=== PATIENT | female | born 1990 | race African-American/Black ===

== ENCOUNTER 2023-12-10 13:21 | Emergency (ER) | payer OTHER, SELFPAY ==
[2023-12-10 13:22] VITALS: BP 131/80
[2023-12-10 13:57] LABS: Urine Albumin Negative (Neg - Trace); Urine Bilirubin Negative (Negative); Urine Character Clear (Clear); Urine Color Yellow; Urine Glucose 2+ (Negative); Urine Ketone Trace (Negative); Urine Leukocyte Negative (Negative); Urine Nitrite Negative (Negative); Urine Occult Blood Negative (Negative); Urine Urobilinogen Negative (Neg - 1+)
[2023-12-10 13:59] LABS: % Basophils 0.4 % (0-2); % Immature Granulocytes 0.3 % (0-0.5); % Lymphocytes 23.5 % (20.5-51.1); % Monocytes 7.5 % (1.7-9.3); % Neutrophils 59.3 % (42.2-75.2); Absolute Eosinophils 0.7 10^3/uL (0-0.7); Absolute Lymphocytes 1.9 10^3/uL (1.2-3.4); Absolute Monocytes 0.6 10^3/uL (0.1-0.6); Absolute Neutrophils 4.7 10^3/uL (1.4-6.5); Hemoglobin 13.7 g/dL (12.0-16.0); Mean Corp Hgb Conc. 34.3 g/dL (33.0-37.0); Mean Corpuscular Hgb 29.2 pg (27.0-31.0); Mean Corpuscular Volume 85.3 fL (81.0-99.0); Mean Platelet Volume 9.9 fL (7.4-10.4); Nucleated Red Blood Cells % 0 %; Platelet Count 432 10^3/uL (130-400); Red Blood Cell Count 4.69 10^6/uL (4.20-5.40); Red Cell Dist. Width 13.2 % (11.5-14.5); White Blood Cell Count 7.9 10^3/uL (4.8-10.8)
--- NOTE | 2023-12-10 14:01 | ED.GENMED ---
History of Present Illness
<Rosy Rivera PA-C - Last Filed: 12/10/23 18:18>
General
Chief Complaint: Flank Pain
Source: patient
Exam Limitations: none
Time Seen by Provider: 12/10/23 13:57
Nursing documentation reviewed up to this point in time: agreed with
History of Present Illness
History of Present Illness:
This is a 33 y/o female with a pmh of asthma, presents to the emergency department today with concerns of right sided upper back pain that wraps around to the front for the past 2 days. She has had associated nausea and vomiting with this. Patient
reports that the pain comes and goes. She does not recall what she was doing when the pain first started. She denies any traumatic injury to the back or chest wall. She denies any diarrhea or constipation. Patient denies any pruritus. Patient
denies any chest pain or shortness of breath. Patient denies any swelling in her lower extremities. Patient also notes that she has had intermittent pelvic cramping which is increased the past few days. Patient estimates to be 6 weeks ,
her last menstrual period was in the middle of October. 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
Review of Systems
<Rosy Rivera PA-C - Last Filed: 12/10/23 18:18>
Review of Systems
All Other Systems: ROS reviewed and negative except as documented in HPI and ROS
Phy Exam
<Rosy Rivera PA-C - Last Filed: 12/10/23 18:18>
Physical Exam
Physical Exam:
General: Patient is well appearing and in no acute distress; non-toxic
Skin: Warm and dry, no rashes or lesions
Head: Normocephalic, atraumatic
Eyes: Sclera non-icteric. EOMs intact. PERRLA.
Cardiac: Regular rate and rhythm, no murmurs
Peripheral Vascular: No lower extremity swelling or edema
Pulm: Normal respiratory effort, no wheezes, rales, rhonchi
Abdomen: Abdominal tenderness noted in the right upper quadrant, no CVA tenderness, no guarding, no palpable masses, no pelvic tenderness palpation
Musculoskeletal: No midline spinal tenderness noted, mild tenderness palpation of the right
Neuro: CN II-XII intact, no focal neurologic deficits.
Psychiatric: Appropriate mood and affect.
Course
<Rosy Rivera PA-C - Last Filed: 12/10/23 18:18>
Orders/Labs/Results
Orders:
Orders
12/10/23 13:35
Complete Blood Count/With Diff Urgent
Comprehensive Metabolic Panel Urgent
HCG,SERUM [Beta HCG Quantitative] Urgent
Is this a screen?: No
Lipase Urgent
Urinalysis Reflex To Culture Urgent
Date Specimen was Collected: 12/10/23
Time Specimen was Collected: 13:27
12/10/23 14:17
US Abdomen Complete/Upper Urgent
Reason For Exam: right upper quadrant pain
US 1st Trimester Urgent
Reason For Exam: pelvic cramping
12/10/23 14:19
Acetaminophen [Tylenol] 500 mg PO NOW STA
12/10/23 14:21
Add On- LAB Urgent
Tests Added?: lipase
12/10/23 14:46
Lactated Ringers [Lr] 1,000 ml IV BOLUS
Abnormal Lab Results
12/10/23
13:35
Plt Count 432 H 10^3/uL
(130-400)
Eosinophils % 9.0 H %
(0-6)
Creatinine 0.5 L mg/dL
(0.6-1.0)
Total Bilirubin 1.4 H mg/dl
(0.2-1.3)
Urine Ketones Trace A
(Negative)
Urine Glucose 2+ A
(Negative)
12/10/23 13:35
12/10/23 13:35
Vital Signs
Initial and Last Documented VS:
Initial Vital Signs
Temp Pulse Resp BP Pulse Ox
98.6 F 106 16 131/80 100
12/10/23 13:22 12/10/23 13:22 12/10/23 13:22 12/10/23 13:22 12/10/23 13:22
Last Documented Vital Signs
Temp Pulse Resp BP Pulse Ox
98.6 F 106 16 131/80 100
12/10/23 13:22 12/10/23 13:22 12/10/23 13:22 12/10/23 13:22 12/10/23 13:22
<Bogdan Nash, DO - Last Filed: 12/10/23 16:18>
Orders/Labs/Results
Orders:
Orders
12/10/23 13:35
Complete Blood Count/With Diff Urgent
Comprehensive Metabolic Panel Urgent
HCG,SERUM [Beta HCG Quantitative] Urgent
Is this a screen?: No
Lipase Urgent
Urinalysis Reflex To Culture Urgent
Date Specimen was Collected: 12/10/23
Time Specimen was Collected: 13:27
12/10/23 14:17
US Abdomen Complete/Upper Urgent
Reason For Exam: right upper quadrant pain
US 1st Trimester Urgent
Reason For Exam: pelvic cramping
12/10/23 14:19
Acetaminophen [Tylenol] 500 mg PO NOW STA
12/10/23 14:21
Add On- LAB Urgent
Tests Added?: lipase
12/10/23 14:46
Lactated Ringers [Lr] 1,000 ml IV BOLUS
Abnormal Lab Results
12/10/23
13:35
Plt Count 432 H 10^3/uL
(130-400)
Eosinophils % 9.0 H %
(0-6)
Creatinine 0.5 L mg/dL
(0.6-1.0)
Total Bilirubin 1.4 H mg/dl
(0.2-1.3)
Urine Ketones Trace A
(Negative)
Urine Glucose 2+ A
(Negative)
12/10/23 13:35
12/10/23 13:35
Vital Signs
Initial and Last Documented VS:
Initial Vital Signs
Temp Pulse Resp BP Pulse Ox
98.6 F 106 16 131/80 100
12/10/23 13:22 12/10/23 13:22 12/10/23 13:22 12/10/23 13:22 12/10/23 13:22
Last Documented Vital Signs
Temp Pulse Resp BP Pulse Ox
98.6 F 106 16 131/80 100
12/10/23 13:22 12/10/23 13:22 12/10/23 13:22 12/10/23 13:22 12/10/23 13:22
Chadlt;Rosy Rivera PA-C - Last Filed: 12/10/23 18:18>
MDM/Problems Addressed
Differential Diagnosis Includes:
Differentials include cholestasis of , cholecystitis, nephrolithiasis, musculoskeletal sprain/strain
MDM/Problems Addressed:
33-year-old female who is 6 weeks and 4 days presents emergency department today with concerns of right sided upper back pain that radiates to the abdomen. Patient has also had nausea and vomiting associated with this. She has not had
nausea or vomiting while here in the emergency department. Exam, she is well-appearing, afebrile, in no acute distress, she does have a positive Bishop sign on exam. Her CBC and CMP are unremarkable. Her urinalysis does show ketonuria as well as
glucosuria, will give LR fluids. Patient had a limited abdominal ultrasound done which did not show any evidence of any biliary problems, no evidence of hydronephrosis. She was also having intermittent lower abdominal pelvic cramping but no
vaginal bleeding, did obtain an streptococcal ultrasound which showed an intrauterine with a normal heartbeat. Patient's pain mildly improved with Tylenol. Did discuss return precautions with patient, I feel she stable for outpatient
follow-up at this time considering she has had no bleeding and she is afebrile with normal ultrasounds. Patient states that she has a follow-up with the clinic she saw tomorrow and she is going to call her [employer]ION [employer] tomorrow morning. Patient stable
for discharge.
Chronic conditions affecting care:
asthma
<Rosy Rivera PA-C - Last Filed: 12/10/23 18:18>
*Pulse Oximetry
Patient hypoxic: no
*Critical Care Note
Total Time (30-74mins, 75-104mins- exclusive of procedures): Not Applicable
Data Reviewed
Review of Other/Old Records Reveals: Records (No previous ER physician documentation to review) and Discharge Summary (No discharge summary in [facility] to review)
Source: patient and records
Prescriptions/Medications Considered But Not Given:
N/A
Further Testing Considered But Not Given:
N/A
<Rosy Rivera PA-C - Last Filed: 12/10/23 18:18>
Patient Management
Escalation/DeEscalation of care consider admission/obs:
Admit not indicated, patient stable for discharge
ED Attending Note
<Rosy Rivera PA-C - Last Filed: 12/10/23 18:18>
-
Portions of this chart may have been created with voice recognition software.� Occasional wrong word or��sound alike� substitutions may have occurred due to the inherent limitations of voice recognition software.
<Bogdan Nash DO - Last Filed: 12/10/23 16:18>
ED Attending Note
Patient seen and examined by attending physician: Yes
I performed a history and physical exam of patient and discussed management with resident, I reviewed resident's note and agree with documented findings and plan of care.: Yes
ED Attending Note:
I have reviewed and agree with history and treatment plan by Rosy Rivera. Patient with right flank pain, mild tenderness. No significant lab abnormalities, patient with mild hypovolemia. Will evaluate with ultrasound, if negative for
cholecystitis, patient may be discharged home.
Discharge Plan
Departure
Patient Disposition: Home (Routine Discharge)
Date of Disposition: 12/10/23
Time of Disposition: 18:02
Patient with high blood pressure during this ER visit?: Yes
Condition: Good
Discharge Problem:
Back pain
Instructions: Stomach Pain in Early , Back Pain, BLOOD PRESSURE
Referrals:
Kait Martinez, DO [Family Provider] -
Activity Restrictions/Additional Instructions:
Your ultrasound showed early intrauterine with a normal heart rate. Your ultrasound of the abdomen showed a normal gallbladder and no evidence of kidney stone or dilation. Your urinalysis did not show any evidence of infection.
Please follow-up with your [employer] and let them know that you were evaluated in the emergency department. Please return to the emergency department should you experience
Please return to the emergency department should you experience intractable vomiting, vaginal bleeding, fevers or chills, lightheadedness, fainting spells, or any other signs or symptoms concerning to you.
Interventions
Interventions:
*Risk Screen - Suicide Last Done: 12/10/23 13:22
*General Assessment Last Done: 12/10/23 13:22
*Neglect/Abuse Screening Last Done: 12/10/23 13:22
*ED COVID-19 Vaccine History Last Done: 12/10/23 13:22
CU-Nmenss-Kaqjgjcsws Assessment Last Done: 12/10/23 14:50
ED-Female Genitourinary Assessment Last Done: 12/10/23 14:50
Discharge Date and Time
Print Language: FRENCH
[2023-12-10 14:11] LABS: ALT (SGPT) 19 U/L (0-35); AST (SGOT) 21 U/L (14-36); Albumin 4.7 g/dl (3.5-5.0); Alkaline Phosphatase 44 U/L (38-126); Blood Urea Nitrogen 10 mg/dl (7-17); Calcium 10.2 mg/dl (8.4-10.2); Carbon Dioxide 28 mmol/L (22-30); Chloride 100 mmol/L (98-107); Glucose 93 mg/dl (70-99); Lipase 68 U/L (23-300); Potassium 4.2 mmol/L (3.5-5.1); Sodium 139 mmol/L (135-145); Total Bilirubin 1.4 mg/dl (0.2-1.3); Total Protein 7.9 g/dl (6.3-8.2); eGFR > 60.00
[2023-12-10] MEDS: TYLENOL 500 MG PO (14:23)
[2023-12-10] MEDS: LR 1000 IV (15:25)
== END 2023-12-10 18:48 | disposition home or self-care (01) ==
LOC: EMR 13:21
PROVIDERS: Emergency Medicine; EMERGENCY PHYSICIAN Emergency Medicine; FAMILY PHYSICIAN Family Medicine
DX: O26.891 Other specified pregnancy related conditions, first trimester (principal); M54.9 Dorsalgia, unspecified; Z3A.01 Less than 8 weeks gestation of pregnancy; J45.909 Unspecified asthma, uncomplicated; R03.0 Elevated blood-pressure reading, without diagnosis of hypertension
CPT/HCPCS: 99284; 96360; 96361 ×2; 76700; 76801; 80053; 81003; 83690; 84702; 85025